=== PATIENT | male | born 1965 | race African-American/Black ===

== ENCOUNTER 2018-09-15 19:51 | Emergency (ER) | payer SELFPAY ==
[~2018-09-15] VITALS: Ht 182.9 cm; Wt 106.8 kg
[2018-09-15] MEDS ORDERED: JANUVIA50 MG PO (20:11)
[2018-09-15] MEDS ORDERED: LANTUS100 U/ML SQ (20:11)
[2018-09-15] MEDS ORDERED: DOXYCYCLINE 10100 MG PO (21:08)
[2018-09-15 21:13] LABS: BASO % 0.5 % (0.0-2.0); EOS # 0.3 (0.0-0.7); EOS % 6.2 % (0-4.0); GRAN # 2.1 (1.4-6.5); GRAN % 47.5 % (42.2-75.2); HEMATOCRIT 43.3 % (42.0-52.0); HEMOGLOBIN 14.4 g/dl (13.5-18.0); LYMPH # 1.6 (1.2-3.4); LYMPH % 37.4 % (20.0-51.0); MEAN CELL VOLUME 81 fl (80.0-100.0); MEAN CORPUSCULAR HEMOGLOBIN 27 pg (27.0-31.0); MEAN CORPUSCULAR HGB CONC 33 g/dl (33.0-37.0); MEAN PLATELET VOLUME 11.7 fl (7.4-10.4); MONO # 0.4 (0.1-0.6); MONO % 8.4 % (1.7-9.3); PLATELET COUNT 197 K/mm3 (130-400); RED BLOOD COUNT 5.36 M/mm3 (4.20-5.60); REDCELL DISTRIBUTION WIDTH-CV 13.6 % (11.5-14.5)
[2018-09-15 21:23] LABS: ALBUMIN 4.2 gm/dL (3.5-5.0); BILIRUBIN,TOTAL 0.5 mg/dL (0.0-1.0); CALCIUM 8.9 mg/dL (8.4-10.2); CREATININE, serum 0.79 mg/dL (0.66-1.25); POTASSIUM 3.8 mmol/L (3.4-5.0); TOTAL PROTEIN 7.2 gm/dL (6.4-8.2)
[2018-09-15] MEDS ORDERED: PROAIR HFA0.09 MG/AC IH (21:49)
[2018-09-15 22:02] VITALS: BP 127/71; PULSE 85; TEMP 97.2
== END 2018-09-15 22:11 | disposition home or self-care (01) ==
LOC: COL.ER 19:51
PROVIDERS: Physician Assistant
DX: J18.1 Lobar pneumonia, unspecified organism (principal); E11.9 Type 2 diabetes mellitus without complications; Z90.89 Acquired absence of other organs; Z79.4 Long term (current) use of insulin

== ENCOUNTER 2021-09-02 15:23 | Emergency (ER) | payer SELFPAY ==
[~2021-09-02] VITALS: Ht 182.9 cm; Wt 100.0 kg
[~2021-09-02 15:23] MED LIST: DOXYCYCLINE 10100 MG PO; JANUVIA50 MG PO; LANTUS100 U/ML SQ; PROAIR HFA0.09 MG/AC IH
[2021-09-02 15:33] VITALS: TEMP 98.6
[2021-09-02] MEDS ORDERED: LANTUS SOLOS100 U/ML SQ (16:15)
[2021-09-02 16:20] LABS: BASO # 0.1 K/mm3 (0.0-0.2); EOS # 0.3 K/mm3 (0.0-0.7); EOS % 4.7 % (0.0-4.0); GRAN # 2.8 K/mm3 (1.4-6.5); GRAN % 45.1 % (42.2-75.2); HEMOGLOBIN 14.8 g/dl (13.5-18.0); LYMPH # 2.6 K/mm3 (1.2-3.4); LYMPH % 41.3 % (20.0-51.0); MEAN CELL VOLUME 81 fl (80.0-100.0); MEAN CORPUSCULAR HEMOGLOBIN 27 pg (27-31); MEAN CORPUSCULAR HGB CONC 34 g/dl (33.0-37.0); MEAN PLATELET VOLUME 10.8 fl (7.4-10.4); MONO # 0.5 K/mm3 (0.1-0.6); MONO % 7.7 % (1.7-9.3); PLATELET COUNT 203 K/mm3 (130-400); RED BLOOD COUNT 5.43 M/mm3 (4.20-5.60); REDCELL DISTRIBUTION WIDTH-CV 13.3 % (11.5-14.5)
[2021-09-02 16:26] LABS: ACETONE,SERUM NEGATIVE
[2021-09-02 16:35] LABS: COLLECTION METHOD CLEAN CATCH
[2021-09-02 16:36] LABS: ALANINE AMINOTRANSFERASE 20 U/L (0-55); ALBUMIN 3.6 gm/dL (3.5-5.0); ALKALINE PHOSPHATASE 103 U/L (40-150); ANION GAP 12 mmol/L (7-16); AST,SGOT 14 U/L (5-34); BILIRUBIN,TOTAL 0.5 mg/dL (0.2-1.2); BLOOD UREA NITROGEN 11 mg/dL (8-26); CALCIUM 8.9 mg/dL (8.4-10.2); CARBON DIOXIDE 24 mmol/L (22-29); CHLORIDE 103 mmol/L (98-107); CREATININE, serum 0.94 mg/dL (0.72-1.25); POTASSIUM 4.4 mmol/L (3.5-4.5); SODIUM 139 mmol/L (136-145); TOTAL PROTEIN 6.3 gm/dL (6.2-8.1)
[2021-09-02 16:37] LABS: GLUCOSE 422 mg/dL (70-99)
[2021-09-02 16:41] LABS: PH 6 (5-8); SQUAMOUS EPITHELIAL 0-2 /hpf (0-10); URINE APPEARANCE Clear (CLEAR/HAZY); URINE BACTERIA None Seen /hpf (NONE SEEN); URINE BILIRUBIN Negative (NEGATIVE); URINE BLOOD Negative (NEGATIVE); URINE COLOR Straw (YELLOW); URINE GLUCOSE 3+ (NEGATIVE); URINE KETONE Negative (NEGATIVE); URINE LEUKOCYTE ESTERASE Negative (NEGATIVE); URINE NITRATE Negative (NEGATIVE); URINE PROTEIN(semi-quant) Negative (NEGATIVE); URINE RBC 0-2 /hpf (0-2); URINE UROBILINOGEN Negative (NEGATIVE)
[2021-09-02] MEDS ORDERED: JANUVIA50 MG PO (17:52)
[2021-09-02] MEDS ORDERED: LYRICA 25MG CAP25 MG PO (17:52)
[2021-09-02 18:08] VITALS: BP 160/858; PULSE 95
[2021-09-02] MEDS ORDERED: LANCETS MC (18:47)
[2021-09-02] MEDS ORDERED: INSULIN PEN NE1 EAC1 MC (18:47)
[2021-09-02] MEDS ORDERED: FREESTYLE PREC1 EAC5 MC (18:47)
== END 2021-09-02 18:08 | disposition home or self-care (01) ==
LOC: COL.ER 15:23
PROVIDERS: Nurse Practitioner
DX: E11.65 Type 2 diabetes mellitus with hyperglycemia (principal); I10 Essential (primary) hypertension; F17.200 Nicotine dependence, unspecified, uncomplicated; Z79.4 Long term (current) use of insulin; Z79.84 Long term (current) use of oral hypoglycemic drugs
CPT/HCPCS: J7030

== ENCOUNTER 2022-11-24 10:23 | Emergency (ER) | payer SELFPAY ==
[~2022-11-24] VITALS: Ht 182.9 cm; Wt 96.4 kg
[~2022-11-24 10:23] MED LIST changes: +FREESTYLE PREC1 EAC5 MC; +INSULIN PEN NE1 EAC1 MC; +LANCETS MC; +LANTUS SOLOS100 U/ML SQ; +LYRICA 25MG CAP25 MG PO
[2022-11-24 10:37] VITALS: BP 150/88; PULSE 86; TEMP 97.9
[2022-11-24] MEDS ORDERED: BACTRIM DS 8001 TAB PO (11:07)
== END 2022-11-24 11:31 | disposition home or self-care (01) ==
LOC: COL.ER 10:23
DX: L03.011 Cellulitis of right finger (principal); Z28.310 Unvaccinated for COVID-19

== ENCOUNTER 2024-03-24 10:21 | Emergency (ER) | payer OTHER ==
[~2024-03-24] VITALS: Ht 182.9 cm; Wt 100.0 kg
[~2024-03-24 10:21] MED LIST changes: +BACTRIM DS 8001 TAB PO
[2024-03-24 10:26] VITALS: BP 148/84; TEMP 97.5
[2024-03-24] MEDS ORDERED: cefTRIAXone 1 G,Lidocaine PF 1% 2.1 ML IM ONE (11:30)
[2024-03-24] MEDS ORDERED: Acetaminophen 500 MG TAB PO ONE (11:30)
[2024-03-24] MEDS ORDERED: DOXYCYCLINE HY100 MG PO (12:40)
[2024-03-24 13:18] LABS: COLLECTION METHOD RANDOM VOIDED
[2024-03-24 13:26] LABS: PH 5.5 (5.0-8.5); URINE APPEARANCE CLEAR (CLEAR/HAZY); URINE BLOOD NEGATIVE (NEGATIVE); URINE COLOR YELLOW (YELLOW); URINE GLUCOSE 3+ (NEGATIVE); URINE KETONE NEGATIVE (NEGATIVE); URINE NITRATE NEGATIVE (NEGATIVE); URINE PROTEIN(semi-quant) NEGATIVE (NEGATIVE); URINE UROBILINOGEN 0.2 E.U/dL (0.2-1.0)
[2024-03-24 13:43] VITALS: PULSE 92
== END 2024-03-24 13:53 | disposition other institution (70) ==
LOC: COL.ER 10:21
PROVIDERS: Physician Assistant
DX: N45.3 Epididymo-orchitis (principal); F17.210 Nicotine dependence, cigarettes, uncomplicated
CPT/HCPCS: J0696